=== PATIENT | female | born 1985 | race Caucasian/White ===

== ENCOUNTER 2019-03-10 16:14 | Inpatient (IN) | payer BC ==
[2019-03-10] MEDS ORDERED: Promethazine HCl 25 MG/ML VIAL IM PRN (17:48)
[2019-03-10] MEDS ORDERED: Ondansetron PF 4 MG/2 ML Vial IVP PRN (17:48)
[2019-03-10] MEDS ORDERED: Carboprost 250 MCG/ML AMP IM PRN (17:48)
[2019-03-10] MEDS ORDERED: Acetaminophen 500 MG TAB PO PRN (17:48)
[2019-03-10] MEDS ORDERED: hydrALAZINE 20 MG/ML VIAL SLOW IVP PRN (17:48)
[2019-03-10] MEDS ORDERED: Lidocaine 1% (PF) 30 ML VIAL SC PRN (17:48)
[2019-03-10] MEDS ORDERED: HYDROcodone/Acetaminophen 5/325 mg Tablet PO PRN (17:48)
[2019-03-10] MEDS ORDERED: NS / Oxytocin 40 units/1000ml 1,000 ML IV PRN (17:48)
[2019-03-10] MEDS ORDERED: Methylergonovine 0.2 MG/ML VIAL IM PRN (17:48)
[2019-03-10] MEDS ORDERED: Diphenoxylate HCl/Atropine Tablet PO PRN (17:48)
[2019-03-10] MEDS ORDERED: Misoprostol 200 MCG TAB PR PRN (17:48)
[2019-03-10] MEDS ORDERED: Ibuprofen 800 MG TAB PO PRN (17:48)
[2019-03-10 18:44] LABS: Hemoglobin 8.9 g/dL (12.0-16.0); Mean Platelet Volume 8.9 fL (7.4-10.4); Platelet Count 244 thou/uL (130-400); Red Blood Cell (RBC) Count 3.56 mill/uL (4.20-5.40); White Blood Cell (WBC) Count 11.7 thou/uL (4.8-10.8)
[2019-03-10 19:04] LABS: Mean Corpuscular HGB CONC 33.6 g/dL (32.0-36.0); Mean Corpuscular Hemoglobin 24.9 pg (27.0-31.0); Mean Corpuscular Volume 74.2 fL (78.0-98.0); RBC Distribution Width 13.7 % (11.5-14.5)
[2019-03-10 19:07] LABS: ALT (SGPT) 10 U/L (8-55); AST (SGOT) 14 U/L (5-34); Albumin 3.2 g/dL (3.5-5.0); Alkaline Phosphatase 125 U/L (40-110); Anion Gap 11 mmol/L (10-20); BUN (Urea Nitrogen) 8 mg/dL (7.0-18.7); Bilirubin, Total 0.3 mg/dL (0.2-1.2); Calc. Creatinine Clearance 0 mL/min (70-130); Calcium 8.9 mg/dL (7.8-10.44); Carbon Dioxide 21 mmol/L (22-29); Chloride 107 mmol/L (98-107); Estimated GFR-MDRD Greater than 90; Globulin 3.2 g/dL (2.4-3.5); Glucose 78 mg/dL (70-105); Potassium 3.6 mmol/L (3.5-5.1); Protein, Total 6.4 g/dL (6.0-8.3); Sodium 135 mmol/L (136-145)
[2019-03-10 19:24] LABS: Syphilis Antibody Nonreactive (Nonreactive)
[2019-03-10 19:25] LABS: HBSAg Index 0.19 S/CO (0-0.99); Hep B Surf Ag Non-Reactive S/CO (NonReactive)
[2019-03-10] MEDS: Misoprostol 100 MCG TAB VAG SCH ×2 (19:25→23:36)
[2019-03-10] MEDS: Lactated Ringer's 1,000 ML IV SCH ×2 (19:29→23:36)
[2019-03-11] MEDS: Butorphanol Tartrate 1 MG/ML VIAL SLOW IVP PRN ×2 (04:11→07:00)
[2019-03-11] MEDS: Misoprostol 100 MCG TAB VAG SCH (04:14)
--- NOTE | 2019-03-11 07:31 | PDOC.LDHP ---
Labor and Delivery H&P Chief complaint: other (oligohydramnios induction) HPI: 33yo at 38w4d by LMP here for IOL due to oligohydramnios on sono, RADHA 3cm, hx of bicornuate uterus. s/p cytotec x 3 overnight. Current gestational age (weeks): 38 Dating criteria: last menstrual period Grav: 1 Para: 0 Current complications: oligohydramnios Abnormal US findings: Yes (bicornuate uterus) Past Medical History: denies Current medications: pre- vitamins Previous surgical history: none Allergies/Adverse Reactions: Allergies Allergy/AdvReac Type Severity Reaction Status Date / Time No Known Allergies Allergy Verified 03/10/19 18:19 Social history: none - Physical Exam Vital signs reviewed and normal: yes General: NAD Heart: RRR Lungs: CTAB Abdomen: gravid Extremeties: pitting edema FHT: category 1 Kaka contractions every: HFLA - OB Labs RH: positive Antibody Screen: negative HIV: negative RPR: negative HEPSAg: negative 1 hour GCT: negative GBS: negative Urine drug screen: negative Rubella: immune - Assessment L&D Assessment: medically indicated induction - Plan Plan: admit to L&D, cervical ripening, labor augmentation if indicated, informed consent obtained, anesthesia consult for pain management
[2019-03-11] MEDS: NS w/ Oxytocin 10 units 500 ML IV SCH (07:45)
[2019-03-11] MEDS: Lactated Ringer's 1,000 ML IV SCH (07:45)
[2019-03-11] MEDS ORDERED: Fentanyl 4 mcg/Bup 0.1% Cadd 100 ML ONE ×2 (08:42→15:42)
[2019-03-11] MEDS ORDERED: Lidocaine 2% PF 5 ML VIAL ONE (09:57)
[2019-03-11] MEDS ORDERED: Naloxone HCl 0.4 mg/ml Vial IVP PRN ×4 (12:18→21:03)
[2019-03-11] MEDS ORDERED: Acetaminophen 325 MG TAB PO PRN ×2 (12:18→20:58)
[2019-03-11] MEDS ORDERED: Ondansetron PF 4 MG/2 ML Vial IVP PRN ×3 (12:18→21:03)
[2019-03-11] MEDS ORDERED: ePHEDrine/0.9% NaCl/PF SYRINGE 50 mg/10 ml SLOW IVP PRN (12:18)
[2019-03-11] MEDS ORDERED: diphenhydrAMINE 50 MG/ML VIAL IVP PRN ×2 (12:18→21:03)
[2019-03-11] MEDS ORDERED: Lactated Ringer's 500 ML IV PRN (12:18)
[2019-03-11] MEDS ORDERED: Promethazine HCl 25 MG/ML VIAL IM PRN ×3 (12:18→21:03)
[2019-03-11] MEDS ORDERED: Communication Order-Pharmacy FS SCH ×2 (12:30→21:15)
[2019-03-11] MEDS ORDERED: Fentanyl 4 mcg/Bupivacaine 0.1% Cassette 100 ML EPIDURAL SCH (12:30)
[2019-03-11] MEDS ORDERED: Bicitra 30 ML UDCUP ONE ×3 (19:54→19:55)
[2019-03-11] MEDS ORDERED: Calcium Gluc 4.6 MEQ/10 ML (100 MG/ML) SLOW IVP PRN (20:19)
--- NOTE | 2019-03-11 20:19 | PDOC.LDPN ---
Labor & Delivery Progress Note - Subjective Subjective: painful contractions - Objective Abnormal vital signs: severe range BP General: breathing through contractions Uterine fundus: non tender Dilation: 5 Effacement: 75% Station: 0 FHT: category 1 Lyman contractions every: 3-5min -: Pt has not progressed since 299 and had pitocin turned off for decels approx 430pm. Pt has intermittent adequate MVU. Cervix and vulva are very edematous, pt is in significant pain despite rebolusing epidural. BP are worsening. Feel at this time CS is indicated for arrest of dilation at 5cm. Possibly labor obstruction or secondary to uterine anomaly- bicornuate vs septate uterus. Risks and benefits discussed, pt desires to proceed with PCS. Start Mag for PEC with severe features, s/p hydralazine x 1. PCR 0.7.
[2019-03-11] MEDS ORDERED: Methylergonovine 0.2 MG/ML VIAL ONE (20:22)
[2019-03-11] MEDS ORDERED: Misoprostol 200 MCG TAB ONE (20:22)
[2019-03-11] MEDS ORDERED: Carboprost 250 MCG/ML AMP ONE (20:23)
[2019-03-11] MEDS ORDERED: Bicitra 30 ML UDCUP PO SCH (20:30)
[2019-03-11] MEDS ORDERED: CEFAZOLIN 2 GM in Premix Bag 1 BAG IVPB SCH (20:30)
[2019-03-11] MEDS ORDERED: Azithromycin 500 MG in Sodium Chloride 0.9% 250 ML 250 ML IVPB SCH (20:30)
[2019-03-11] MEDS ORDERED: MORPHINE 5 MG/10 ML PF VIAL ONE (20:36)
[2019-03-11] MEDS ORDERED: Lidocaine 2% 10 ML INJ ONE (20:37)
[2019-03-11] MEDS ORDERED: Ondansetron PF 4 MG/2 ML Vial ONE ×2 (20:37→21:39)
[2019-03-11] MEDS ORDERED: Oxytocin 10 UNITS/ML VIAL ONE (20:37)
[2019-03-11] MEDS ORDERED: Magnesium Sulfate 20 GM/WATER 500 ML BAG IVPB SCH (20:45)
[2019-03-11] MEDS ORDERED: Simethicone Chewable 80 MG TAB PO PRN (20:58)
[2019-03-11] MEDS ORDERED: diphenhydrAMINE 25 MG CAP PO PRN (20:58)
[2019-03-11] MEDS ORDERED: Zolpidem Tartrate 5 MG TAB PO PRN (20:58)
[2019-03-11] MEDS ORDERED: Lanolin Ointment 7 GM TUBE TOP PRN (20:58)
[2019-03-11] MEDS ORDERED: Bisacodyl 10 MG SUPP PR PRN (20:58)
[2019-03-11] MEDS ORDERED: hydrALAZINE 20 MG/ML VIAL SLOW IVP PRN (20:58)
[2019-03-11] MEDS ORDERED: Naloxone HCl 0.4 mg/ml Vial IV PRN (21:03)
[2019-03-11] MEDS ORDERED: Ketorolac Tromethamine 30 MG/ML VIAL IVP PRN (21:03)
[2019-03-11] MEDS ORDERED: Promethazine HCl 25 MG SUPP PR PRN (21:03)
[2019-03-11] MEDS ORDERED: L&D-Morphine 4 MG/ML VIAL SLOW IVP PRN (21:04)
[2019-03-11] MEDS ORDERED: Ondansetron HCl/PF 4 MG/2 ML Vial IVP PRN (21:04)
[2019-03-11] MEDS ORDERED: Meperidine HCl/PF 25 MG/ML VIAL SLOW IVP PRN (21:04)
[2019-03-11] MEDS ORDERED: Ketorolac Tromethamine 30 MG/ML VIAL IVP SCH (21:15)
[2019-03-11] MEDS ORDERED: Ketorolac Tromethamine 30 MG/ML VIAL ONE (21:33)
[2019-03-11] MEDS ORDERED: Ibuprofen 800 MG TAB PO SCH (22:00)
[2019-03-11] MEDS ORDERED: Azithromycin 500 MG VIAL ONE (22:07)
[2019-03-11] MEDS: Magnesium Sulfate 20 gm/500 ml 20 GM/500 ML BAG IVPB SCH (23:00)
[2019-03-11] MEDS ORDERED: Meperidine HCl/PF 25 MG/ML VIAL ONE (23:20)
[2019-03-12 06:21] LABS: Mean Corpuscular HGB CONC 33.2 g/dL (32.0-36.0); Mean Corpuscular Hemoglobin 25.1 pg (27.0-31.0); Mean Corpuscular Volume 75.5 fL (78.0-98.0); Mean Platelet Volume 8.9 fL (7.4-10.4); Platelet Count 223 thou/uL (130-400); RBC Distribution Width 13.8 % (11.5-14.5); White Blood Cell (WBC) Count 25.4 thou/uL (4.8-10.8)
--- NOTE | 2019-03-12 07:21 | PDOC.PP ---
Post Progress Note Post Day #: 12 hrs Subjective: awake, doing well. PO intake tolerated: yes Flatus: yes Ambulation: yes Weight Weight 6.702 oz Vitals reviewed in QS Mag in use - Physical Examination Respiratory: clear to auscultation bilaterally Abdominal: + bowel sounds, lochia, no distention, appropriately TTP Extremities: negative homans (B) Neurological: no gross focal deficits Psychiatric: A&Ox3, normal affect Result Diagrams: 03/12/19 06:04 03/10/19 18:32 Additional Labs: Post Labs Blood Type B POSITIVE 03/10/19 19:45 Hep Bs Antigen Non-Reactive S/CO (NonReactive) 03/10/19 18:31 (1) Delivery by section Code(s): LNY0906 - Status: Acute (2) PIH ( induced hypertension) Code(s): O13.9 - GESTATIONAL HTN W/O SIGNIFICANT PROTEINURIA, UNSP TRIMESTER Status: Acute - Assessment/Plan On MagSo4 until 2099...now s/p primary CS baby in NICU for respiratory care Maternal BPs on Reviewed with her plan to continue Mag until 2099...continue kramer.
[2019-03-12] MEDS: Ferrous Sulfate 325 MG TAB PO SCH ×3 (08:14→21:10)
[2019-03-12] MEDS: Docusate Calcium (SURFAK) 240 MG CAP PO SCH ×3 (08:14→21:10)
[2019-03-12] MEDS: Misoprostol 100 MCG TAB VAG SCH (08:30)
[2019-03-12] MEDS: Lactated Ringer's 1,000 ML IV SCH (08:31)
[2019-03-12] MEDS: NS w/ Oxytocin 10 units 500 ML IV SCH (08:31)
[2019-03-12] MEDS: Magnesium Sulfate 20 gm/500 ml 20 GM/500 ML BAG IVPB SCH ×2 (08:41→17:29)
[2019-03-12] MEDS ORDERED: Adacel (T-DAP) 0.5 ML SYRINGE IM ONE (09:00)
[2019-03-12] MEDS ORDERED: Prenatal Vitamin 1 TAB PO SCH (09:00)
[2019-03-12] MEDS ORDERED: HYDROcodone/Acetaminophen 5/325 mg Tablet PO PRN ×2 (09:15→22:42)
[2019-03-12] MEDS: HYDROcodone/Acetaminophen 5/325 mg Tablet PO PRN ×2 (12:39→21:11)
[2019-03-12] MEDS ORDERED: Lanolin Ointment 7 GM TUBE TOP PRN (22:42)
[2019-03-12] MEDS ORDERED: Zolpidem Tartrate 5 MG TAB PO PRN (22:42)
[2019-03-12] MEDS ORDERED: Simethicone Chewable 80 MG TAB PO PRN (22:42)
[2019-03-12] MEDS ORDERED: hydrALAZINE 20 MG/ML VIAL SLOW IVP PRN (22:42)
[2019-03-12] MEDS ORDERED: Ondansetron PF 4 MG/2 ML Vial IVP PRN (22:42)
[2019-03-12] MEDS ORDERED: Promethazine HCl 25 MG/ML VIAL IM PRN (22:42)
[2019-03-12] MEDS ORDERED: Bisacodyl 10 MG SUPP PR PRN (22:42)
[2019-03-13] MEDS: Ibuprofen 800 MG TAB PO SCH ×4 (00:32→21:05)
[2019-03-13] MEDS ORDERED: Ibuprofen 800 MG TAB PO SCH (06:00)
[2019-03-13] MEDS: Prenatal Vitamin 1 TAB PO SCH (08:18)
[2019-03-13] MEDS: Ferrous Sulfate 325 MG TAB PO SCH ×2 (08:18→21:05)
[2019-03-13] MEDS: Docusate Calcium (SURFAK) 240 MG CAP PO SCH ×2 (08:19→21:05)
[2019-03-13] MEDS: HYDROcodone/Acetaminophen 5/325 mg Tablet PO PRN ×3 (08:54→17:17)
--- NOTE | 2019-03-13 09:03 | PRG ---
DATE OF SERVICE: 03/13/2019 SUBJECTIVE: The patient is postop day 2 status post a scheduled repeat primary for arrest of labor in the setting of preeclampsia. For complete details, please refer to Dr. Massey's operative note. Her postoperative course thus far has been complicated by magnesium for seizure prophylaxis. She just came off earlier this morning. The patient has no complaints. She is tolerating a diet, voiding on her own, having decreased lochia and good pain control. OBJECTIVE: VITAL SIGNS: This morning, blood pressure is 138/82, temperature 98.3, pulse of 89, and respiratory rate of 17. GENERAL: She appears to be in no acute distress. She is alert and oriented, cooperative and pleasant to interact with. HEENT: Head is normocephalic, atraumatic. ABDOMEN: Fundus is firm, appropriately tender. Incision is clean, dry, and intact. EXTREMITIES: Nontender, nonedematous. ASSESSMENT AND PLAN: The patient is pod #2 Status post a primary for arrest of labor in the setting of preeclampsia. We will continue in-house management for the next day or two as we monitor her blood pressures. Of note, baby is in the NICU with complications of a pneumothorax, improving. Job ID: [id number] [facility]
[2019-03-14] MEDS: Prenatal Vitamin 1 TAB PO SCH (08:06)
[2019-03-14] MEDS: Docusate Calcium (SURFAK) 240 MG CAP PO SCH (08:06)
[2019-03-14] MEDS: Ibuprofen 800 MG TAB PO SCH ×2 (08:07→14:50)
[2019-03-14] MEDS: Ferrous Sulfate 325 MG TAB PO SCH (08:07)
[2019-03-14] MEDS: HYDROcodone/Acetaminophen 5/325 mg Tablet PO PRN ×2 (08:10→16:08)
[2019-03-14 09:16] VITALS: BP 147/87; TEMP 98.5
--- NOTE | 2019-03-14 10:38 | OP ---
DATE OF PROCEDURE: 03/11/2019 PREOPERATIVE DIAGNOSES: 1. Intrauterine at 38 weeks and 4 days. 2. Arrest of dilation at 5 cm. 3. Non-reassuring heart tones remote from delivery. 4. Severe preeclampsia. POSTOPERATIVE DIAGNOSES: 1. Intrauterine at 38 weeks and 4 days. 2. Arrest of dilation at 5 cm. 3. Non-reassuring heart tones remote from delivery. 4. Severe preeclampsia. PROCEDURE PERFORMED: Primary low-transverse section via Pfannenstiel skin incision. ANESTHESIA: Epidural. [employer] DEVELOPMENT: Dallas Bonilla MD ESTIMATED BLOOD LOSS: 700 mL. COMPLICATIONS: None. DRAINS: Higuera catheter. PATHOLOGY: None. FINDINGS: Female infant cephalic presentation, OP with significant caput. Vigorous clear amniotic fluid. Apgars and weight are pending. Hysterotomy without extension repaired with 2 layers. Ovaries and fallopian tubes were normal bilaterally. The uterus was within normal limits. There was no bicornuate or septate uterus noted on examination. Excellent hemostasis and a correct count. DESCRIPTION OF PROCEDURE: The patient was taken to the operating room, where epidural anesthesia was found to be adequate. The patient was prepped and draped in a sterile fashion in the dorsal supine position with a leftward tilt. After ensuring adequacy of anesthesia, a Pfannenstiel skin incision was made and carried down to the underlying subcutaneous tissue with a knife. The fascia was nicked in the midline with a knife and carried laterally with the Sorenson scissors. The superior aspect of the fascia was tented with two Obdulio's and dissected off the rectus with the Sorenson scissors. The inferior aspect of the fascia was tented with two Obdulio's and dissected off the rectus with the Sorenson's as well. The rectus was bluntly divided in the midline and the peritoneum was bluntly entered into and manually retracted. The bladder flap was created with the Metzenbaum's, and the lower uterine segment was incised in a transverse fashion and extended with a Burden maneuver. The infant's head was brought to the hysterotomy and delivered atraumatically with fundal pressure followed by the body. The infant's cord was clamped after delay cord clamping as the infant was vigorous, and the infant handed to awaiting Neonatology team. Cord blood was obtained and the placenta was allowed to spontaneously deliver. The uterus was exteriorized, cleared of all clots and debris and examined for a bicornuate versus septate uterus, which was felt to be present during ultrasound; however, this was not present. The uterus was placed back into the abdomen and the hysterotomy was repaired with a #1 Monocryl in a running locking fashion. A second horizontal imbricating layer of #1 Monocryl was placed as well. Hemostasis was noted to be excellent. Copious irrigation of the pelvis was performed and suctioned again noting excellent hemostasis. The Vasiliy O retractor was removed out of the abdomen. The rectus muscles were examined and noted to be hemostatic. The fascia was reapproximated with a 0 PDS x2 sutures with excellent reapproximation. Subcutaneous tissue was irrigated and cauterized of any bleeders and reapproximated with a 2-0 plain gut in a running fashion. The skin was closed with 4-0 Monocryl in a subcuticular fashion. Dermabond was applied as well as a pressure dressing. The patient tolerated the procedure well. Sponge, lap, and needle counts were correct x2. The patient was taken to recovery in stable condition. The patient received Ancef 2 g and azithromycin 500 mg for surgical prophylaxis. Job ID: [id number]
--- NOTE | 2019-03-14 14:14 | PDOC.PP ---
Post Progress Note Post Day #: 3 PO intake tolerated: yes Flatus: yes Ambulation: yes Vital Signs (12 hours) Temp Pulse Resp BP Pulse Ox 03/14/19 08:00 98.5 F 78 20 147/87 H 98 Weight Weight 190 lb - Physical Examination General: NAD Respiratory: non-labored breathing Abdominal: no distention, appropriately TTP Fundus firm & at: umb-2 Deviation from normal: 1+ MARIELOS bilaterally Skin: CS incision dry & intact Neurological: no gross focal deficits Psychiatric: normal affect Result Diagrams: 03/12/19 06:04 03/10/19 18:32 Additional Labs: Post Labs Blood Type B POSITIVE 03/10/19 19:45 Hep Bs Antigen Non-Reactive S/CO (NonReactive) 03/10/19 18:31 - Assessment/Plan POD3 s/p PCS for AOD at 37w 2/2 oligohydramnios VSSAF PIH- BP nl-mild, no sx PIH, labs wnl, will monitor BP as outpt Acute blood loss on chronic iron def anemia, no s/sx anemia, cont iron BID in addition to PNV Met all postop milestones. Rh pos RImm DC home FU 2 wk.
== END 2019-03-14 17:20 | disposition home or self-care (01) | DRG 787 ==
LOC: L&D 16:14 → 3SW 03-12 23:49
PROVIDERS: ADMIT Student in an Organized Health Care Education/Training Program; ATTEND Student in an Organized Health Care Education/Training Program
PROC: 10D00Z1 Extraction of Products of Conception, Low, Open Approach (ICD-10-PCS; principal; 2019-03-14)
PROC: 3E0P7VZ Introduction of Hormone into Female Reproductive, Via Natural or Artificial Opening (ICD-10-PCS; 2019-03-14)
DX: O41.03X0 Oligohydramnios, third trimester, not applicable or unspecified (principal); D62 Acute posthemorrhagic anemia; O76 Abnormality in fetal heart rate and rhythm complicating labor and delivery; O62.1 Secondary uterine inertia; Z3A.38 38 weeks gestation of pregnancy; Z37.0 Single live birth; O14.14 Severe pre-eclampsia complicating childbirth; O99.02 Anemia complicating childbirth; D50.9 Iron deficiency anemia, unspecified
CPT/HCPCS: 36415; 51702; 80053; 82570; 84156; 85027; 86780; 86850; 86900; 86901; 87340; J0360; J0456; J0595; J0690; J1885; J2001; J2175; J2210; J2274; J2405; J2590; J3475; J3490